=== PATIENT | male | born 1980 | race Two or more races ===

== ENCOUNTER 2022-06-20 13:13 | Emergency (ER) | payer OTHER ==
[2022-06-20 13:23] VITALS: RESP 18; TEMP 98.1; BMI 66.9
[2022-06-20 14:24] LABS: BASO % 0.3 % (0-2.0); HEMATOCRIT 45.3 % (35.4-49); HEMOGLOBIN 15.5 GM/dL (11.7-16.9); MCH 29.3 pg (25.7-33.7); MCHC 34.3 g/dl (32.0-35.9); MEAN CELL VOLUME 85.4 fl (80-96); MEAN PLT VOLUME 7.2 fl (7.5-11.1); MONO % 5.6 % (3.8-10.2); NEUT % 72.1 % (42.8-82.8); PLATELET COUNT 339 10^3/uL (134-434); RDW 14.2 % (11.9-15.9); WHITE BLOOD COUNT 11.8 K/mm3 (4.0-10.0)
[2022-06-20 14:31] LABS: INR 1.35 (0.83-1.09); PROTHROMBIN TIME (PATIENT) 15.6 SEC (9.7-13.0)
[2022-06-20 14:33] LABS: ACTIVATED PTT 32.3 SECONDS (25.2-36.5)
[2022-06-20 14:46] LABS: ALBUMIN 3.8 g/dl (3.4-5.0); BLOOD UREA NITROGEN 15.1 mg/dL (7-18); CALCIUM 8.6 mg/dL (8.5-10.1); MAGNESIUM 2.1 mg/dL (1.8-2.4)
[2022-06-20 14:51] LABS: BILIRUBIN,TOTAL 0.5 mg/dL (0.2-1); TOT PROT 7.5 g/dl (6.4-8.2)
[2022-06-20 18:49] VITALS: BP 135/75; PULSE 85
== END 2022-06-20 18:49 | disposition home or self-care (01) ==
LOC: JER 13:13
DX: R00.2 Palpitations (principal)
CPT/HCPCS: 36415; 71045-TC-FY; 80053; 83735; 84443; 84484; 85025; 85379; 85610; 85730; 93005; 93010; 99285-25